=== PATIENT | female | born 1970 | race Two or more races ===

== ENCOUNTER → 2023-04-28 | Emergency (ER) | payer OTHER ==
[~2023-04-28] VITALS: Ht 170.2 cm; Wt 71.7 kg
[~2023-04-28] MED LIST: PERCOGESIC EXT1 EACH PO
== END | disposition left against medical advice (07) ==
LOC: ER 12:44
DX: Z53.21 Procedure and treatment not carried out due to patient leaving prior to being seen by health care provider (principal)

== ENCOUNTER 2023-06-10 09:09 | Day surgery (SDC) | payer OTHER | END 2023-06-10 14:45 | disposition home or self-care (01) | LOC: AMB-ENDOS 09:09 | PROVIDERS: ATTEND Colon & Rectal Surgery | DX: D12.2 Benign neoplasm of ascending colon (principal); D12.3 Benign neoplasm of transverse colon; K62.5 Hemorrhage of anus and rectum; R19.4 Change in bowel habit; K64.8 Other hemorrhoids; Z20.822 Contact with and (suspected) exposure to COVID-19; Z88.6 Allergy status to analgesic agent ==